=== PATIENT | female | born 2000 | race Hispanic/Latino ===

== ENCOUNTER 2018-06-13 08:46 | Outpatient (CLI) | payer BC ==
--- NOTE | 2018-06-14 11:05 | NM ---
RADIOIODINE THYROID UPTAKE AND SCAN: Date: 06/13/18 HISTORY: Abnormal results of thyroid function test. RADIOPHARMACEUTICAL: 253 microcuries Iodine-123 administered orally. FINDINGS: There is homogeneous tracer distribution to both lobes of the thyroid gland without focal hot or cold nodules. The 24 hour uptake measures 41% (normal 10-30%). IMPRESSION: Findings are consistent with hyperthyroid Graves' disease. POS: [facility]
== END 2018-06-13 08:47 | disposition home or self-care (01) ==
LOC: NM 08:46
PROVIDERS: ATTEND Internal Medicine Endocrinology, Diabetes & Metabolism
DX: R94.6 Abnormal results of thyroid function studies (principal)
CPT/HCPCS: 78014; A9516